=== PATIENT | female | born 1995 | race Caucasian/White ===

== ENCOUNTER 2020-06-28 13:50 | Emergency (ER) | payer OTHER ==
[~2020-06-28] VITALS: Ht 165.1 cm; Wt 63.5 kg
[2020-06-28] MEDS ORDERED: DUI500 PO (17:45)
[2020-06-28] MEDS ORDERED: INTESTINEX680 M1 PO (17:45)
[2020-06-28] MEDS ORDERED: KETO10TA2 PO (17:45)
== END 2020-06-28 18:36 | disposition home or self-care (01) ==
LOC: ER 13:50
DX: S61.422A Laceration with foreign body of left hand, initial encounter (principal); W26.0XXA Contact with knife, initial encounter; Y93.89 Activity, other specified; Y92.018 Other place in single-family (private) house as the place of occurrence of the external cause; Y99.8 Other external cause status

== ENCOUNTER 2020-07-05 09:28 | Emergency (ER) | payer OTHER ==
[~2020-07-05] VITALS: Ht 165.1 cm; Wt 68.0 kg
[~2020-07-05 09:28] MED LIST: DUI500 PO; INTESTINEX680 M1 PO; KETO10TA2 PO
== END 2020-07-05 12:08 | disposition home or self-care (01) ==
LOC: ER 09:28
DX: Z48.02 Encounter for removal of sutures (principal)

== ENCOUNTER 2021-09-11 08:03 | Emergency (ER) | payer OTHER ==
[~2021-09-11] VITALS: Ht 162.6 cm; Wt 74.8 kg
== END 2021-09-11 09:32 | disposition home or self-care (01) ==
LOC: ER 08:03
DX: H66.91 Otitis media, unspecified, right ear (principal)